=== PATIENT | male | born 1975 | race Two or more races ===

== ENCOUNTER 2021-01-02 23:48 | Inpatient (IN) | payer OTHER ==
[~2021-01-02] VITALS: Ht 170.2 cm; Wt 72.7 kg
[2021-01-03 00:42] LABS: GLUCOMETER DEV NAME(LOC) ERT.5; GLUCOSE,POINT OF CARE 158 MG/DL (70-110)
[2021-01-03 01:19] LABS: BASOPHILS % (AUTO) 0.5 % (0.0-2.0); EOSINOPHILS % (AUTO) 1.3 % (1.0-6.0); HEMATOCRIT 42.8 % (41-53); HEMOGLOBIN 13.9 g/dL (13.5-17.5); LYMPHOCYTES # (AUTO) 1.9 K/uL (1.0-4.8); LYMPHOCYTES % (AUTO) 21.2 % (22.0-44.0); MEAN CORPUSCULAR HEMOGLOBIN 29.5 pg (26.0-34.0); MEAN CORPUSCULAR HGB CONC 32.5 G/dL (31.0-37.0); MEAN CORPUSCULAR VOLUME 91 fL (80-100); MONOCYTES # (AUTO) 0.6 K/uL (0.1-1.0); MONOCYTES % (AUTO) 6.8 % (2.0-9.0); NEUTROPHILS # (AUTO) 6.2 K/uL (1.8-7.7); NEUTROPHILS % (AUTO) 70.2 % (40.0-70.0); PLATELET COUNT (AUTO) 259 K/uL (150-450); RED BLOOD CELL COUNT(AUTO) 4.71 MIL/uL (4.50-5.90); RED CELL DISTRIBUTION WIDTH 14.1 % (11.5-14.5)
[2021-01-03] MEDS ORDERED: ACETAMINOPHEN 325 MG TABLET PO PRN (01:30)
[2021-01-03] MEDS ORDERED: LORazepam 0.5 MG TABLET PO PRN (01:30)
[2021-01-03] MEDS ORDERED: DEXTROSE 50%-WATER 25 GM/50 ML SYRINGE IVP PRN (01:30)
[2021-01-03] MEDS ORDERED: KETOROLAC TROMETHAMINE 15 MG/ML VIAL IVP PRN (01:30)
[2021-01-03] MEDS ORDERED: ONDANSETRON HCL 4 MG/2 ML VIAL IVP PRN (01:30)
[2021-01-03 01:31] LABS: ANION GAP 6 mmol/L (8-16); CARBON DIOXIDE 32 mmol/L (22-29); CHLORIDE 104 mmol/L (98-107); CREATININE 0.76 mg/dL (0.60-1.30); GLOMERULAR FILTR. RATE CALC > 60 mL/min (>60); GLUCOSE,RANDOM 200 mg/dL (70-110); POTASSIUM 4.2 mmol/L (3.5-5.1); SODIUM SERUM 142 mmol/L (136-145); UREA NITROGEN, BLOOD 18 mg/dL (7-18)
[2021-01-03 01:37] LABS: ALANINE AMINOTRANSFERASE 41 U/L (12-78); ALBUMIN 3.7 g/dL (3.4-5.0); ALKALINE PHOSPHATASE 111 U/L (46-116); ASPARTATE AMINOTRANSFERASE 15 U/L (15-37); BILIRUBIN,TOTAL 0.3 mg/dL (0.1-1.0); TOTAL PROTEIN, SERUM 6.8 g/dL (6.4-8.2)
[2021-01-03 02:49] LABS: COVID AG,FIA SOURCE NASOPHARYNGEAL
[2021-01-03 08:32] VITALS: BP 119/77
[2021-01-03] MEDS: HEPARIN SODIUM,PORCINE 5,000 UNITS/ML VIAL SQ SCH ×2 (08:46→17:00)
[2021-01-03] MEDS: INSULIN LISPRO 100 UNITS/ML SQ PRN ×3 (12:16→20:36)
[2021-01-03 15:24] VITALS: BP 120/75
[2021-01-03 19:30] VITALS: BP 121/83
[2021-01-03 21:00] LABS: APPEARANCE,URINE CLEAR (CLEAR); BILIRUBIN,URINE NEGATIVE (NEGATIVE); GLUCOSE, URINE (UA) 250 mg/dL (NEGATIVE); KETONES,URINE NEGATIVE (NEGATIVE); LEUKOCYTE ESTERASE ,URINE NEGATIVE (NEGATIVE); NITRATE,URINE NEGATIVE (NEGATIVE); OCCULT BLOOD,URINE NEGATIVE (NEGATIVE); PROTEIN,URINE NEGATIVE (NEGATIVE); UROBILINOGEN,URINE 0.2 mg/dL (<=1.0)
[2021-01-03] MEDS ORDERED: INSULIN GLARGINE,HUM.REC.ANLOG 100 UNITS/ML SQ SCH (21:00)
[2021-01-03 21:11] LABS: AMPHET/METH SCREEN,URINE NEGATIVE (NEGATIVE); BARBITURATE SCREEN, URINE NEGATIVE (NEGATIVE); BENZODIAZEPINES SCREEN,URINE NEGATIVE (NEGATIVE); CANNABINOID SCREEN,URINE NEGATIVE (NEGATIVE); COCAINE SCREEN,URINE NEGATIVE (NEGATIVE); METHADONE SCREEN, URINE NEGATIVE (NEGATIVE); OPIATE SCREEN,URINE NEGATIVE (NEGATIVE); PHENCYCLIDINE SCREEN,URINE NEGATIVE (NEGATIVE)
[2021-01-03 21:50] LABS: BACTERIA,URINE None Seen /HPF (None Seen); RBC,URINE None Seen /HPF (0-2); WBC,URINE None Seen /HPF (0-5)
[2021-01-04] MEDS: HEPARIN SODIUM,PORCINE 5,000 UNITS/ML VIAL SQ SCH ×2 (00:11→08:16)
[2021-01-04 02:28] LABS: GLUCOMETER DEV NAME(LOC) 6S.1; GLUCOSE,POINT OF CARE 146 MG/DL (70-110)
[2021-01-04 02:28] LABS: GLUCOMETER DEV NAME(LOC) 6N.1; GLUCOSE,POINT OF CARE 157 MG/DL (70-110)
[2021-01-04 02:28] LABS: GLUCOMETER DEV NAME(LOC) 6N.1; GLUCOSE,POINT OF CARE 250 MG/DL (70-110)
[2021-01-04 03:56] VITALS: BP 109/76
[2021-01-04 05:28] LABS: GLUCOMETER DEV NAME(LOC) 6S.1; GLUCOSE,POINT OF CARE 178 MG/DL (70-110)
[2021-01-04] MEDS: INSULIN LISPRO 100 UNITS/ML SQ PRN (05:41)
[2021-01-04 08:14] VITALS: BP 110/71
[2021-01-04] MEDS ORDERED: ACET-2247 PO (10:33)
== END 2021-01-04 14:05 | DRG 897 ==
LOC: EMS 23:48 → 6S 01-03 06:10
PROVIDERS: ADMIT Internal Medicine; ATTEND Internal Medicine
DX: F11.20 Opioid dependence, uncomplicated (principal); E87.3 Alkalosis; G89.4 Chronic pain syndrome; Z20.822 Contact with and (suspected) exposure to COVID-19; E11.65 Type 2 diabetes mellitus with hyperglycemia; Z79.84 Long term (current) use of oral hypoglycemic drugs
CPT/HCPCS: 80053; 81001; 82962; 83036; 85025; 99285; G0480; J1644; J1815